=== PATIENT | female | born 1940 | race Caucasian/White ===

== ENCOUNTER 2018-12-11 10:29 | Emergency (ER) | payer MEDICARE, OTHER ==
[2018-12-11] MEDS ORDERED: Adacel Vial IM ONE ×2 (10:50→11:02)
[2018-12-11] MEDS ORDERED: Augmentin 875-125 Tablet PO ONE (10:50)
[2018-12-11] MEDS ORDERED: Augmentin 875-125 Tablet ONE (11:02)
--- NOTE | 2018-12-11 11:11 | ERPHSYRPT ---
- History of Present Illness Time Seen by Provider: 12/11/18 10:50 Source: patient Exam Limitations: no limitations Patient Subjective Stated Complaint: Pt states "I was riding my bike and a dog intervened an bit me." Triage Nursing Assessment: Pt presented alert and oriented X3, skin pwd Pt ambulates with an upright steady gait, able to speak in clear fll sentences. Pt has bite yu on her right lateral calf, bleeding controlled. Physician History: A neighbor's dog attacked her, when she was on a bicycle, bit her right lower leg. She denies other injury, fall, her tetanus status is uncertain, denies any complaints, except mild pain in the right lower leg. Method of Injury: other (dog bite) Occurred: just prior to arrival Quality: constant Severity of Pain-Max: mild Severity of Pain-Current: mild Lower Extremities Pain: ankle: right (dog bites ( puncture wounds) Modifying Factors: Improves With: nothing Associated Symptoms: none Allergies/Adverse Reactions: No Known Drug Allergies Allergy (Unverified 12/11/18 10:38) Hx Tetanus, Diphtheria Vaccination/Date Given: No Hx Influenza Vaccination/Date Given: No Hx Pneumococcal Vaccination/Date Given: No Immunizations Up to Date: Yes - Review of Systems Constitutional: No Symptoms Ears, Nose, & Throat: No Symptoms Respiratory: No Symptoms Cardiac: No Symptoms Abdominal/Gastrointestinal: No Symptoms Musculoskeletal: Other (dog bite to right lower leg) Skin: No Symptoms Neurological: No Symptoms All Other Systems: Reviewed and Negative - Past Medical History Pertinent Past Medical History: No - Past Surgical History Past Surgical History: No - Social History Smoking Status: Never smoker Exposure to second hand smoke: No Drug Use: none Patient Lives Alone: No - Female History Hx Now: No - Nursing Vital Signs Nursing Vital Signs: Initial Vital Signs Temperature 98.4 F 12/11/18 10:34 Pulse Rate 108 H 12/11/18 10:34 Respiratory Rate 18 12/11/18 10:34 Blood Pressure 190/80 12/11/18 10:34 Pain Scale Pain Intensity 0 - Physical Exam General Appearance: no apparent distress Eyes, Ears, Nose, Throat Exam: normal ENT inspection Neck Exam: normal inspection Cardiovascular/Respiratory Exam: chest non-tender, normal breath sounds, heart sounds normal Gastrointestinal/Abdominal Exam: non-tender, soft Back Exam: normal inspection, No CVA tenderness, No vertebral tenderness Ankle Exam: right ankle: soft tissue tenderness (3-4 puncture wounds, small dog bites in a circular arrangement with slight bruising, no deep laceration, large hematoma or bleeding, good distal pulses and sensation of the foot.) Neuro/Tendon Exam: normal motor functions Mental Status Exam: alert, oriented x 3 Skin Exam: normal color, warm, dry, No diaphoresis SpO2 Interpretation: normal O2 Delivery: Room Air - Course Nursing assessment & vital signs reviewed: Yes Ordered Tests: Active Orders 24 hr Category Date Time Status Wound Care STAT Care 12/11/18 10:50 Active Medication Summary Discontinued Medications Generic Name Dose Route Start Last Admin Trade Name Freq PRN Reason Stop Dose Admin Amoxicillin/Clavulanate Potassium 875 mg 12/11/18 10:50 Augmentin 875-125 Tablet PO 12/11/18 10:51 STAT ONE Amoxicillin/Clavulanate Potassium Confirm 12/11/18 11:02 Augmentin 875-125 Tablet Administered 12/11/18 11:03 Dose 875 mg .ROUTE .STK-MED ONE Diphtheria/Tetanus/Acell Pertussis 0.5 ml 12/11/18 10:50 Adacel Vial IM 12/11/18 10:51 .ONCE ONE Diphtheria/Tetanus/Acell Pertussis Confirm 12/11/18 11:02 Adacel Vial Administered 12/11/18 11:03 Dose 0.5 ml IM .STK-MED ONE - Progress Progress: unchanged Progress Note: 12/11/18 11:09 Pt was started on Po Augmentin, given Tetanus booster, she has been stable, discharged to follow up with animal control regarding to dog's immunization status, and with her physician in 2-3 days, cleanse her wounds daily with antiseptic solutions. Counseled pt/family regarding: diagnosis, need for follow-up - Departure Departure Disposition: Home Clinical Impression: Dog bite of ankle Qualifiers: Encounter type: initial encounter Laterality: right Qualified Code(s): S91.051A - Open bite, right ankle, initial encounter; W54.0XXA - Bitten by dog, initial encounter Condition: Stable Critical Care Time: No Instructions: Animal Bites (DC) Additional Instructions: Rest x 2-3 days with elevated leg, cleanse wounds with antiseptic solutions daily and follow up with your physician in 2-3 days, continue Augmentin x 10 days, and return if severe pain, swelling, redness, discharge or fever> 102 F! Prescriptions: Amoxicillin/Potassium Clav [Augmentin 875-125 Tablet] 875 mg PO BID #20 tablet
[2018-12-11 11:36] VITALS: BP 182/75; PULSE 88; O2SAT 99
== END 2018-12-11 11:32 | disposition home or self-care (01) ==
LOC: ED 10:29
DX: S91.051A Open bite, right ankle, initial encounter (principal); W54.0XXA Bitten by dog, initial encounter
CPT/HCPCS: 90471; 90715; 99283; A9270-GY